=== PATIENT | male | born 1960 | race Hispanic/Latino ===

== ENCOUNTER → 2017-10-25 | Day surgery (SDC) | payer MEDICARE ==
[2017-10-23 13:54] LABS: ANION GAP 13.8 mmol/L (8-16); BLOOD UREA NITROGEN 15 mg/dL (7-26); BUN/CREATININE RATIO 15 (6-25); CALCIUM 9.9 mg/dL (8.4-10.2); CARBON DIOXIDE 26 mmol/L (22-29); CHLORIDE 109 mmol/L (98-107); EST GLOMERULAR FILTRATION RATE > 60 ML/MIN (60-); GLUCOSE 116 mg/dL (74-118); POTASSIUM 4.8 mmol/L (3.5-5.1); SODIUM 144 mmol/L (136-145)
[~2017-10-25] MED LIST: CEFAZOLIN SOD 2 GM/D5W 50ML 0 ML IV ONE; CEFAZOLIN SOD 2 GM/D5W 50ML 50 ML IV ONE; CELEBREX100 MG PO; CLONAZEPAM1 MG PO; DEXAMETHASONE SOD PHOS INJ 4 MG/ML VIAL ONE; DIOVAN80 MG PO; EPHEDRINE SULFATE INJ 50 MG/10 ML SYR ONE; FLOMAX0.4 MG PO; GLYCOPYRROLATE INJ 1MG/ 5 ML SYR ONE; HUMIRA40 MG/0.8 SC; LIDOCAINE 2%/ EPINEPHRINE 20ML MDV ONE; LIDOCAINE HCL 2% LOCAL INJ 5 ML SDV VIAL INJ ONE; LISINOPRIL10 MG PO; METFORMIN HCL500 MG PO; NEOSTIGMINE 1 MG/ML 10ML VIAL ONE; NIACIN500 M2 PO; ONDANSETRON HCL INJ 2 MG/ML VIAL ONE; PRAVASTATIN SOD40 MG PO; PROPOFOL IV EMULSION 10 MG/ML 20 ML VIAL ONE; ROCURONIUM BROMIDE 10 MG/ML 5ML VIAL ONE; ROPIVACAINE 0.5% 5 MG/ML 30 ML SDV ONE; SEVOFLURANE INHAL SOLN 250 ML PEN BTL ONE; VIIBRYD20 MG PO
--- NOTE | 2017-10-27 19:22 | Operative Report ---
DATE OF PROCEDURE: October 25, 2017 PREOPERATIVE DIAGNOSES 1. Left shoulder impingement syndrome. 2. Left shoulder rotator cuff tendinosis. POSTOPERATIVE DIAGNOSES 1. Left shoulder rotator cuff tear. 2. Left shoulder synovitis. 3. Left shoulder bursitis. OPERATIONS/PROCEDURES PERFORMED 1. The patient underwent a left shoulder examination under anesthesia. 2. Left shoulder arthroscopy. 3. Left shoulder arthroscopic debridement of intra-articular synovitis. 4. Left shoulder arthroscopic subacromial decompression and acromioplasty. 5. Left shoulder arthroscopic rotator cuff reconstruction. MOVING PICTURE PRODUCER: None. ANESTHESIA: General endotracheal intubation anesthesia. The patient also had a regional block. IV FLUIDS: Per the anesthesia record. COMPLICATIONS: None. BRIEF DESCRIPTION OF THE PATIENT'S OPERATIVE PROCEDURE: Mr. Gutiérrez was taken to the operating room and placed in the supine position on the operating room table. Following induction of general anesthesia, as well as endotracheal intubation, the patient's left upper extremity was examined under anesthesia. He was found to have full passive range of motion of the shoulder joint. There were no gross abnormalities in the shoulder. There was no instability of the shoulder. The patient's upper extremity was prepped and draped in the standard surgical fashion. Standard posterolateral and anterior portals were created without difficulty. Scope was placed within the shoulder joint atraumatically. Examination of the glenohumeral articulation demonstrated no significant evidence of chondromalacia. The long head of the biceps was found to be contained within the shoulder joint and in good condition. Examination of the articular portion of the rotator cuff tissue demonstrated thinning of the anterior portion of the rotator cuff, but no clear evidence of a tear. There was diffuse synovitis in the shoulder joint. A shaver was placed within the shoulder and the synovitis was debrided at this time. The shoulder was then deflated of its sterile normal saline. Scope was then placed in the subacromial space, and significant bursal inflammation was encountered. A bursectomy was performed. Examination of the rotator cuff tissues demonstrated significant wear particularly along the anterior leading edge of the rotator cuff tissue. A probe was placed in the shoulder joint through a lateral portal, and the patient was found to have a near full-thickness rotator cuff injury along the anterior leading edge of the rotator cuff itself. An elevator was used to elevate this portion of the rotator cuff. A shaver was then used to debride the area to a bleeding bony bed. Accessory anterolateral portal was created without difficulty. A double loaded suture anchor was then inserted into the greater tuberosity of the humerus, and suture arms from those anchors were then woven through the rotator cuff tissue. The rotator cuff was then advanced and tied firmly into its normal insertion site repairing the patient's rotator cuff injury. A bursectomy was performed and the coracoacromial ligament was then resected. An aggressive acromioplasty was performed. The patient's shoulder was placed through motion, and there was found to be no further impingement. The rotator cuff was repaired in full. The shoulder was then deflated of its sterile normal saline. The portal sites were closed in a single layer fashion. Sterile dressings were applied. The patient was provided a shoulder immobilizer, awakened and taken to the postanesthesia care unit in stable condition. Job#: [id number] RANJITH
== END | disposition home or self-care (01) ==
LOC: OR 07:22
PROVIDERS: ATTEND Specialist
DX: S46.092D Other injury of muscle(s) and tendon(s) of the rotator cuff of left shoulder, subsequent encounter (principal); E11.9 Type 2 diabetes mellitus without complications; I10 Essential (primary) hypertension; L40.50 Arthropathic psoriasis, unspecified; F41.9 Anxiety disorder, unspecified; E78.5 Hyperlipidemia, unspecified; M75.52 Bursitis of left shoulder; M65.812 Other synovitis and tenosynovitis, left shoulder; Z01.812 Encounter for preprocedural laboratory examination; Z01.810 Encounter for preprocedural cardiovascular examination
CPT/HCPCS: 29826; 29827; 36415 ×2; 80048; 82948; 93005; J2001; J2795; J1100; J2405; J2710

== ENCOUNTER → 2018-11-29 | Outpatient (CLI) | payer MEDICARE ==
[~2018-11-29] MED LIST changes: -CEFAZOLIN SOD 2 GM/D5W 50ML 0 ML IV ONE; -CEFAZOLIN SOD 2 GM/D5W 50ML 50 ML IV ONE; -DEXAMETHASONE SOD PHOS INJ 4 MG/ML VIAL ONE; -EPHEDRINE SULFATE INJ 50 MG/10 ML SYR ONE; -GLYCOPYRROLATE INJ 1MG/ 5 ML SYR ONE; -LIDOCAINE 2%/ EPINEPHRINE 20ML MDV ONE; -LIDOCAINE HCL 2% LOCAL INJ 5 ML SDV VIAL INJ ONE; -NEOSTIGMINE 1 MG/ML 10ML VIAL ONE; -ONDANSETRON HCL INJ 2 MG/ML VIAL ONE; -PROPOFOL IV EMULSION 10 MG/ML 20 ML VIAL ONE; -ROCURONIUM BROMIDE 10 MG/ML 5ML VIAL ONE; -ROPIVACAINE 0.5% 5 MG/ML 30 ML SDV ONE; -SEVOFLURANE INHAL SOLN 250 ML PEN BTL ONE
== END ==
LOC: CARD 11-26 14:40
PROVIDERS: ATTEND Internal Medicine Cardiovascular Disease
DX: I82.493 Acute embolism and thrombosis of other specified deep vein of lower extremity, bilateral (principal)
CPT/HCPCS: 93880